=== PATIENT | female | born 1970 | race African-American/Black ===

== ENCOUNTER 2019-01-06 07:39 | Outpatient (CLI) | payer OTHER | END 2019-01-06 20:29 | disposition home or self-care (01) | LOC: MAMMO 07:39 | DX: Z12.31 Encounter for screening mammogram for malignant neoplasm of breast (principal) ==

== ENCOUNTER 2022-11-22 10:21 | Outpatient (CLI) | payer OTHER | END 2022-11-22 20:07 | disposition home or self-care (01) | LOC: RAD 10:21 | PROVIDERS: ATTEND Family Medicine | DX: R76.12 Nonspecific reaction to cell mediated immunity measurement of gamma interferon antigen response without active tuberculosis (principal) ==